=== PATIENT | female | born 2005 ===

== ENCOUNTER 2023-12-30 21:31 | Emergency (ER) | payer MEDICAID ==
[~2023-12-30] VITALS: Ht 157.5 cm; Wt 64.0 kg
[2023-12-30 22:03] VITALS: BP 108/74; PULSE 77; RESP 16; TEMP 98.1; O2SAT 100
[2023-12-30 22:44] LABS: CLARITY URINE CLEAR (CLEAR); COLOR URINE YELLOW (YELLOW); GLUCOSE URINE NEGATIVE (NEGATIVE); KETONES URINE TRACE (NEGATIVE); LEUKOCYTE ESTERASE URINE 1+ (NEGATIVE); NITRITE URINE NEGATIVE (NEGATIVE); OCCULT BLOOD URINE NEGATIVE (NEGATIVE); PROTEIN URINE NEGATIVE (NEGATIVE); SPECIFIC GRAVITY URINE 1.015 (1.005-1.030)
[2023-12-30 23:01] LABS: BACTERIA URINE 1+
[2023-12-30 23:02] LABS: RBC URINE 0-2 /hpf (0-2); SQUAMOUS EPITHELIAL CELL URINE 1+ /lpf (RARE/1+)
== END 2023-12-30 23:53 | disposition left against medical advice (07) ==
LOC: ER 21:31
DX: N89.8 Other specified noninflammatory disorders of vagina (principal); N39.0 Urinary tract infection, site not specified
CPT/HCPCS: 81003; 81025; 99283